=== PATIENT | male | born 1955 | race Caucasian/White ===

== ENCOUNTER 2017-04-18 17:38 | Emergency (ER) | payer BC ==
--- NOTE | 2017-04-18 18:38 | EDPHY ---
H & P Time Seen by Provider: 04/18/17 18:38 HPI/ROS: Chief complaint. Elevated blood pressure HPI. 61-year-old male with history of hypertension was at a routine visit to his psychiatrist today and found to be having an elevated blood pressure of 161/ 114 at the physician's office. Recheck and remained at about that level. Patient however has no symptoms including no headache, visual symptoms, chest discomfort, trouble breathing or abdominal pain. No focal weakness or paresthesias. He was at his PCP's office 2 weeks ago for routine check and his blood pressure at that time was 124/78. His psychiatrist sent him here for further evaluation and blood pressure control ROS Constitutional. no fever/chills, no weakness Eyes. no problems with vision ENT. no sore throat, no nasal drainage Cardiovascular. no chest pain Respiratory. no shortness of breath, no cough Abdominal. no abdominal pain, no nausea/vomiting, no diarrhea . no problems urinating MS. no calf pain/swelling, no neck/back pain, no joint pain Skin. no rash Lymph. no swollen glands Neuro. no headache, no dizziness, no difficulty walking or with speech Past Medical/Surgical History: Hypertension, bipolar illness, dyslipidemia, prostate cancer Social History: , nonsmoker, no alcohol Smoking Status: Never smoked Physical Exam: General Appearance: Alert pleasant well-developed male mild distress vital signs significant for blood pressure 165/104 Eyes: Pupils equal and round no pallor or injection. ENT, Mouth: Mucous membranes are moist. Respiratory: There are no retractions, lungs are clear to auscultation. Cardiovascular: Regular rate and rhythm. Gastrointestinal: Abdomen is soft and nontender, no masses, bowel sounds normal. Neurological: Awake and alert, sensory and motor exams grossly normal. Skin: Warm and dry, no rashes. Musculoskeletal: Neck is supple nontender. Extremities symmetrical, full range of motion. Psychiatric: Patient is oriented X 3, there is no agitation. Constitutional: Initial Vital Signs Temperature (C) 36.8 C 04/18/17 17:40 Heart Rate 70 04/18/17 17:40 Respiratory Rate 18 04/18/17 17:40 Blood Pressure 165/104 H 04/18/17 17:40 O2 Sat (%) 95 04/18/17 17:40 O2 Delivery Mode Room Air Allergies/Adverse Reactions: KULWINDER Inhibitors [Kulwinder Inhibitors] Allergy (Intermediate, Verified 04/18/17 17:40) swelling RAMAPRIL Allergy (Uncoded 02/19/11 14:03) Home Medications: Medication Instructions Recorded ARIPiprazole [Abilify 2 mg (*)] 2 mg PO DAILY 04/18/17 Atorvastatin Calcium [Lipitor 40 40 mg PO 04/18/17 mg (*)] Hydrochlorothiazide [HCTZ (*)] 25 mg PO DAILY 04/18/17 Propranolol HCl [Propranolol HCl 60 mg PO 04/18/17 ER] QUEtiapine FUMARATE [Seroquel 100 100 mg PO DAILY 04/18/17 mg (*)] amLODIPine BESYLATE [Norvasc 5 mg 5 mg PO DAILY 04/18/17 (*)] lamOTRIGine [Lamotrigine] 150 mg PO 04/18/17 Medical Decision Making - Diagnostics EKG Interpretation: EKG interpreted by me shows normal sinus rhythm with first-degree AV. There is left axis deviation possible old inferior. QRS is otherwise normal. There is no significant ST elevation depression. No arrhythmia. Rate is 60 Repeat EKG shows normal sinus rhythm with first-degree AV block. There is still is the appearance of an old inferior MN. His R-wave progression in anterior leads is normal. There is no ST elevation or depression. The rate is 58 Procedures: IV normal saline, monitor Norvasc by mouth ED Course/Re-evaluation: Re-evaluation blood pressure 147/92. Patient is still without symptoms. The patient and I discussed EKG findings as well as laboratory evaluation. We discussed treatment plan including criteria for return importance of follow-up and further evaluation. He expresses understanding and agreement Differential Diagnosis: I considered acute coronary syndrome, urgent and emergent hypertension as well as electrolyte abnormalities - Data Points Laboratory Results: Laboratory Results 04/18/17 19:34 04/18/17 19:34 04/18/17 04/18/17 19:34 19:34 WBC 9.10 10^3/uL 10^3/uL (3.80-9.50) RBC 5.36 10^6/uL 10^6/uL (4.40-6.38) Hgb 18.5 g/dL H g/dL (13.7-17.5) Hct 51.5 % H % (40.0-51.0) MCV 96.1 fL fL (81.5-99.8) MCH 34.5 pg H pg (27.9-34.1) MCHC 35.9 g/dL g/dL (32.4-36.7) RDW 12.6 % % (11.5-15.2) Plt Count 146 10^3/uL L 10^3/uL (150-400) MPV 11.3 fL fL (8.7-11.7) Neut % (Auto) 61.5 % % (39.3-74.2) Lymph % (Auto) 23.2 % % (15.0-45.0) [place] % (Auto) 10.5 % % (4.5-13.0) Eos % (Auto) 3.8 % % (0.6-7.6) Baso % (Auto) 0.8 % % (0.3-1.7) Nucleat RBC Rel Count 0.0 % % (0.0-0.2) Absolute Neuts (auto) 5.59 10^3/uL 10^3/uL (1.70-6.50) Absolute Lymphs (auto) 2.11 10^3/uL 10^3/uL (1.00-3.00) Absolute Monos (auto) 0.96 10^3/uL H 10^3/uL (0.30-0.80) Absolute Eos (auto) 0.35 10^3/uL 10^3/uL (0.03-0.40) Absolute Basos (auto) 0.07 10^3/uL 10^3/uL (0.02-0.10) Absolute Nucleated RBC 0.00 10^3/uL 10^3/uL (0-0.01) Immature Gran % 0.2 % % (0.0-1.1) Immature Gran # 0.02 10^3/uL 10^3/uL (0.00-0.10) Sodium 140 mEq/L mEq/L (134-144) Potassium 5.4 mEq/L H mEq/L (3.5-5.2) Chloride 103 mEq/L mEq/L (97-110) Carbon Dioxide 20 mEq/l L mEq/l (22-31) Anion Gap 17 mEq/L H mEq/L (8-16) BUN 22 mg/dL mg/dL (7-23) Creatinine 0.8 mg/dL mg/dL (0.7-1.3) Estimated GFR > 60 Glucose 89 mg/dL mg/dL (70-100) Calcium 9.4 mg/dL mg/dL (8.5-10.4) Troponin I 0.017 ng/mL ng/mL (0-0.034) Specimen Hemolysis 214 Medications Given: Discontinued Medications Amlodipine Besylate (Norvasc) 10 mg PO EDNOW ONE Stop: 04/18/17 18:58 Last Admin: 04/18/17 19:45 Dose: 10 mg Departure - Departure Disposition: Home, Routine, Self-Care Clinical Impression: Hypertension Qualifiers: Hypertension type: essential hypertension Qualified Code(s): I10 - Essential ( primary) hypertension Condition: Good Instructions: Hypertension (ED) Additional Instructions: Continue regular medications. Keep track of your blood pressure. Return for headache, visual change, chest discomfort or trouble breathing, abdominal pain. Follow up with your regular physician for possible change in blood pressure medication Referrals: CHUCK COMER [Primary Care Provider] - 2-3 days, call for appt.
[2017-04-18] MEDS ORDERED: amLODIPine BESYLATE 5 MG TAB PO ONE (18:57)
[2017-04-18 19:46] LABS: % IMMATURE GRANULYOCYTES 0.2 % (0.0-1.1); ABSOLUTE IMMATURE GRANULOCYTES 0.02 10^3/uL (0.00-0.10); ADD DIFF? NO; ADD MORPH? NO; ADD SCAN? NO; ATYPICAL LYMPHOCYTE FLAG 10 (0-99); FRAGMENT RBC FLAG 0 (0-99); HEMATOCRIT 51.5 % (40.0-51.0); HEMOGLOBIN 18.5 g/dL (13.7-17.5); LEFT SHIFT FLG 0 (0-99); LIPEMIA HEMOLYSIS FLAG 90 (0-99); MEAN CELL HEMOGLOBIN 34.5 pg (27.9-34.1); MEAN CELL HEMOGLOBIN CONCENTR. 35.9 g/dL (32.4-36.7); MEAN CELL VOLUME 96.1 fL (81.5-99.8); MEAN PLATELET VOLUME 11.3 fL (8.7-11.7); PLATELET CLUMPS FLAG 0 (0-99); PLATELET COUNT 146 10^3/uL (150-400); RED BLOOD CELL COUNT 5.36 10^6/uL (4.40-6.38); RED CELL DISTRIBUTION WIDTH 12.6 % (11.5-15.2)
--- NOTE | 2017-04-18 19:54 | CPEKG ---
Heart Rate: 60 RR Interval: 1000 P-R Interval: 256 QRSD Interval: 90 QT Interval: 424 QTC Interval: 424 P [place]: 4 QRS [place]: -57 T Wave [place]: 30 EKG Severity - ABNORMAL ECG - EKG Impression: SINUS RHYTHM EKG Impression: FIRST DEGREE AV BLOCK EKG Impression: PROBABLE INFERIOR INFARCT, AGE INDETERMINATE EKG Impression: CONSIDER ANTERIOR INFARCT Electronically Signed By: Wagner Sheppard 18-Apr-2017 22:56:57
[2017-04-18 20:01] LABS: ANION GAP 17 mEq/L (8-16); CALCIUM 9.4 mg/dL (8.5-10.4); CARBON DIOXIDE 20 mEq/l (22-31); CHLORIDE 103 mEq/L (97-110); CREATININE 0.8 mg/dL (0.7-1.3); GLOMERULAR FILTRATION RATE > 60; GLUCOSE 89 mg/dL (70-100); POTASSIUM 5.4 mEq/L (3.5-5.2); SODIUM 140 mEq/L (134-144)
[2017-04-18 20:13] LABS: TROPONIN I 0.017 ng/mL (0-0.034)
[2017-04-18 20:23] LABS: SPECIMEN HEMOLYSIS 214
[2017-04-18 21:19] VITALS: RESP 16
[2017-04-18 22:03] VITALS: BP 146/97; PULSE 72; TEMP 97.9; O2SAT 95
--- NOTE | 2017-04-19 09:27 | CPEKG ---
Heart Rate: 58 RR Interval: 1034 P-R Interval: 248 QRSD Interval: 86 QT Interval: 436 QTC Interval: 429 P [place]: 17 QRS [place]: -53 T Wave [place]: 41 EKG Severity - ABNORMAL ECG - EKG Impression: SINUS RHYTHM EKG Impression: FIRST DEGREE AV BLOCK EKG Impression: PROBABLE INFERIOR INFARCT, AGE INDETERMINATE EKG Impression: UNCHANGED IN COMPARISON TO PRIOR ECG Electronically Signed By: Mart Mckeon 20-Apr-2017 15:25:09
== END 2017-04-18 22:03 | disposition home or self-care (01) ==
DX: I10 Essential (primary) hypertension (principal); Z85.46 Personal history of malignant neoplasm of prostate

== ENCOUNTER 2018-10-22 19:55 | Observation (INO) | payer BC ==
[2018-10-22] MEDS ORDERED: NS 1,000 ML IV ONE (20:01)
--- NOTE | 2018-10-22 20:01 | EDPHY ---
H & P Time Seen by Provider: 10/22/18 20:00 - Medical/Surgical History Other PMH: bipolar. HTN. prostate cancer - Social History Smoking Status: Never smoked Constitutional: Initial Vital Signs Temperature (C) 36.4 C 10/22/18 20:10 Heart Rate 103 H 10/22/18 20:10 Respiratory Rate 18 10/22/18 20:10 Blood Pressure 130/97 H 10/22/18 20:10 O2 Sat (%) 99 10/22/18 20:10 O2 Delivery Mode Room Air Allergies/Adverse Reactions: ramipril Allergy (Severe, Verified 10/22/18 21:14) Swelling/neck,face,throat KULWINDER Inhibitors [Kulwinder Inhibitors] Allergy (Intermediate, Verified 10/22/18 20:48) swelling Home Medications: Medication Instructions Recorded ARIPiprazole [Abilify 2 mg (*)] 1 mg PO DAILY 04/18/17 Atorvastatin Calcium [Lipitor 40 40 mg PO DAILY 04/18/17 mg (*)] amLODIPine BESYLATE [Norvasc 5 mg 5 mg PO DAILY 04/18/17 (*)] lamOTRIGine [Lamotrigine] 150 mg PO DAILY 04/18/17 Benztropine Mesylate [Cogentin (*)] 1 mg PO HS 10/22/18 Herbals/Supplements -Info Only 1 ea PO DAILY 10/22/18 Propranolol HCl [Inderal 20mg (*)] 20 mg PO QID 10/22/18 Spironolact/Hydrochlorothiazid 0.5 each PO DAILY 10/22/18 [Spironolactone-Hctz 25-25 Tab] levOFLOXACIN [levAQUIN (*)] 500 mg PO DAILY 10/22/18 Medical Decision Making ED Course/Re-evaluation: CHIEF COMPLAINT: Rectal bleeding s/p prostate biopsy HISTORY OF PRESENT ILLNESS: The patient is a 63 y/o male with a history of prostate cancer complaining of rectal bleeding s/p a prostate biopsy today. The prostate biopsy was at 12:30pm today, 7 hours ago. He has had persistent rectal bleeding since the surgery. Since returning home, he has felt dizzy and lightheaded. He is able to have a bowel movement, but there is bright red blood present. Due to the rectal bleeding, he was advised to present to the emergency department by his urologist. No fever, headache, chest pain, abdominal pain, numbness, paresthesias. REVIEW OF SYSTEMS: A comprehensive 10 system review of systems is otherwise negative aside from elements mentioned in the history of present illness and medical decision making. PHYSICAL EXAM: HR, BP, O2 Sat, RR. Temp noted General Appearance: Pale, diaphoretic, alert, appropriate. Head: Atraumatic without scalp tenderness or obvious injury Eyes: Pupils equal, round, reactive to light and accommodation, EOMI, no trauma , no injection. Ears: Clear bilaterally, no perforation, normal landmarks Nose: Atraumatic, no rhinorrhea, clear. Throat: There is no erythema or exudates, no lesions, normal tonsils, mucus membranes moist. Neck: Supple, 2+ carotid upstroke, nontender, no lymphadenopathy. Respiratory: No retractions, no distress, no wheezes, and no accessory muscle use. Lungs are clear to auscultation bilaterally. Cardiovascular: Tachycardic, no murmurs, rubs, or gallops. Bilateral carotid, radial, dorsalis pedis, and posterior tibial pulses intact. Good capillary refill all extremities. Gastrointestinal: Abdomen is soft, nontender, non-distended, no masses, no rebound, no guarding, no peritoneal signs. Rectal: Bright red blood present. Musculoskeletal: Normal active ROM of all extremities, atraumatic. Neurological: Alert, appropriate, and interactive. The patient has normal DTRs and non-focal cranial nerves, motor, sensory, and cerebellar exam. Skin: No rashes, good turgor, no nodules on palpation. Past medical history: Bipolar, hypertension, prostate cancer Past surgical history: Prostate biopsy Family history: Denies Social history: at bedside, lives in [place], employed DIAGNOSTICS/PROCEDURES/CRITICAL CARE TIME: Critical care time spent by me, Dr. Jose, exclusively with this patient was 90 minutes, exclusive of PA time and exclusive of procedures. The organ system at risk was Z and I gave IVF and transferred the patient to the floor to prevent worsening of the patients condition. DIFFERENTIAL DIAGNOSIS: The differential diagnosis for the patient's lower GI bleeding included but was not limited to mucosal bleeding s/p prostate biopsy, diverticulosis, tumor, AVM , hemorrhoid, and upper GI Bleed. MEDICAL DECISION MAKING: The patient is a 63 y/o male with a history of prostate cancer presenting with rectal bleeding s/p a prostate biopsy today. He is still actively bleeding from his rectum and I presume a mucosal artery or vein was hit during the procedure today. 2 IV lines established and 1L IV NS administered, type and cross as well as additional labs ordered. 2022: I consulted with Dr. Gonsalez, general surgeon, regarding this patient. He agrees to consult on this patient. 2049: I consulted with the hospitalist service, Dr. Perez accepts admission of this patient. 2057: I consulted with Dr. Hebert, urologist, regarding this patient. He agrees to consult on this patient during his admission. 2141: Reassessed patient and discussed plan for admission. Dr. Gonsalez is also in the room now to consult on this patient. - Data Points Laboratory Results: Laboratory Results 10/22/18 20:10 10/22/18 20:10 10/22/18 10/22/18 10/22/18 20:14 20:10 20:10 WBC RBC Hgb POC Hgb 16.7 gm/dL gm/dL (13.7-17.5) Hct POC Hct 49 % % (40-51) MCV MCH MCHC RDW Plt Count MPV Neut % (Auto) Lymph % (Auto) [place] % (Auto) Eos % (Auto) Baso % (Auto) Nucleat RBC Rel Count Absolute Neuts (auto) Absolute Lymphs (auto) Absolute Monos (auto) Absolute Eos (auto) Absolute Basos (auto) Absolute Nucleated RBC Immature Gran % Immature Gran # PT INR APTT POC Sodium 137 mEq/L mEq/L (135-145) Sodium 134 mEq/L L mEq/L (135-145) POC Potassium 4.0 mEq/L mEq/L (3.3-5.0) Potassium 4.2 mEq/L mEq/L (3.5-5.2) POC Chloride 98 mEq/L mEq/L (97-110) Chloride 100 mEq/L mEq/L (97-110) Carbon Dioxide 19 mEq/l L mEq/l (22-31) POC Total CO2 20 mEq/L L mEq/L (22-31) Anion Gap 15 mEq/L H mEq/L (6-14) POC BUN 26 mg/dL H mg/dL (7-23) BUN 27 mg/dL H mg/dL (7-23) Creatinine 1.0 mg/dL mg/dL (0.7-1.3) POC Creatinine 1.1 mg/dL mg/dL (0.7-1.3) Estimated GFR > 60 Glucose 237 mg/dL H mg/dL (70-100) POC Glucose 241 mg/dL H mg/dL (70-100) Calcium 9.2 mg/dL mg/dL (8.5-10.4) Patient ABO/Rh A POSITIVE Antibody Screen NEGATIVE Crossmatch IS Only See Detail 10/22/18 10/22/18 20:10 20:10 WBC 14.09 10^3/uL H 10^3/uL (3.80-9.50) RBC 4.74 10^6/uL 10^6/uL (4.40-6.38) Hgb 16.3 g/dL g/dL (13.7-17.5) POC Hgb Hct 47.6 % % (40.0-51.0) POC Hct MCV 100.4 fL H fL (81.5-99.8) MCH 34.4 pg H pg (27.9-34.1) MCHC 34.2 g/dL g/dL (32.4-36.7) RDW 11.8 % % (11.5-15.2) Plt Count 230 10^3/uL 10^3/uL (150-400) MPV 11.6 fL fL (8.7-11.7) Neut % (Auto) 84.4 % H % (39.3-74.2) Lymph % (Auto) 9.8 % L % (15.0-45.0) [place] % (Auto) 5.3 % % (4.5-13.0) Eos % (Auto) 0.0 % L % (0.6-7.6) Baso % (Auto) 0.2 % L % (0.3-1.7) Nucleat RBC Rel Count 0.0 % % (0.0-0.2) Absolute Neuts (auto) 11.90 10^3/uL H 10^3/uL (1.70-6.50) Absolute Lymphs (auto) 1.38 10^3/uL 10^3/uL (1.00-3.00) Absolute Monos (auto) 0.74 10^3/uL 10^3/uL (0.30-0.80) Absolute Eos (auto) 0.00 10^3/uL L 10^3/uL (0.03-0.40) Absolute Basos (auto) 0.03 10^3/uL 10^3/uL (0.02-0.10) Absolute Nucleated RBC 0.00 10^3/uL 10^3/uL (0-0.01) Immature Gran % 0.3 % % (0.0-1.1) Immature Gran # 0.04 10^3/uL 10^3/uL (0.00-0.10) PT 14.0 SEC SEC (12.0-15.0) INR 1.06 (0.83-1.16) APTT 21.3 SEC L SEC (23.0-38.0) POC Sodium Sodium POC Potassium Potassium POC Chloride Chloride Carbon Dioxide POC Total CO2 Anion Gap POC BUN BUN Creatinine POC Creatinine Estimated GFR Glucose POC Glucose Calcium Patient ABO/Rh Antibody Screen Crossmatch IS Only Medications Given: Discontinued Medications Sodium Chloride (Ns) 1,000 mls @ 0 mls/hr IV EDNOW ONE; Wide Open PRN Reason: Protocol Stop: 10/22/18 20:02 Last Admin: 10/22/18 20:19 Dose: 1,000 mls Point of Care Test Results: Chemistry 10/22/18 20:14 POC Sodium 137 mEq/L mEq/L (135-145) POC Potassium 4.0 mEq/L mEq/L (3.3-5.0) POC Chloride 98 mEq/L mEq/L (97-110) POC Total CO2 20 mEq/L L mEq/L (22-31) POC BUN 26 mg/dL H mg/dL (7-23) POC Creatinine 1.1 mg/dL mg/dL (0.7-1.3) POC Glucose 241 mg/dL H mg/dL (70-100) ISTAT H&H 10/22/18 20:14 POC Hgb 16.7 gm/dL gm/dL (13.7-17.5) POC Hct 49 % % (40-51) Departure - Departure Disposition: [facility] Inpatient Acute Clinical Impression: Rectal bleeding, History of prostate biopsy Condition: Fair Report Scribed for: Zurdo Jose Report Scribed by: Shruthi Guo Date of Report: 10/22/18 Time of Report: 20:04
[2018-10-22 20:26] LABS: PLATELET COUNT 230 10^3/uL (150-400)
[2018-10-22 20:29] LABS: INR 1.06 (0.83-1.16)
[2018-10-22] MEDS ORDERED: ACETAMINOPHEN 325 MG TAB PO PRN (21:08)
[2018-10-22] MEDS ORDERED: HYDROmorphONE/DILAUDID 1 MG/ML INJ IVP PRN (21:08)
[2018-10-22] MEDS ORDERED: NS 1,000 ML IV SCH (21:15)
[2018-10-22] MEDS ORDERED: BENZTROPINE MESYLATE 2 MG TAB PO SCH (22:15)
[2018-10-22] MEDS ORDERED: BENZTROPINE MESYLATE 1 MG TAB PO SCH (22:30)
[2018-10-22] MEDS: PROPRANOLOL HCL 20 MG TAB PO SCH (23:00)
--- NOTE | 2018-10-22 23:54 | GHP ---
[f rep st] HISTORY AND PHYSICAL DATE OF ADMISSION: 10/22/2018 CHIEF COMPLAINT: Blood per rectum. HISTORY OF PRESENT ILLNESS: Patient is a pleasant 63-year-old gentleman with a past medical history of hypertension and bipolar disorder, who had a notable elevated PSA recently and subsequently underw ent an MRI of his prostate and subsequent biopsy today. After returning home he had persistent bleed ing per rectum and, after consulting with his on-call urologist, presented to the emergency room for assessment. Upon arrival to the emergency room his hemoglobin was 16. The case was reviewed with [facility] Urology and General Surgery in the emergency room, and it was ultimately decided to admit him for observation and serial hemoglobins. PAST MEDICAL HISTORY: Hypertension; suspected asthma; obstructive sleep apnea, on CPAP; bipolar diso rder. PAST SURGICAL HISTORY: History of laparotomy for perforated gastric ulcer. MEDICATIONS: Amlodipine 5 mg daily; Abilify 1 mg daily; Atorvastatin 40 mg daily; benztropine 1 mg n ightly; lamotrigine 150 mg daily; Levaquin 500 mg daily; Inderal 20 mg 4 times a day; spironolactone/ hydrochlorothiazide half tablet daily. ALLERGIES: ROCK inhibitors. FAMILY HISTORY: Mother and father are both living. Father has a history of coronary artery disease and mother with history of hypertension and diabetes mellitus type 2. SOCIAL HISTORY: Patient is currently . He has no children. He is not a smoker. REVIEW OF SYSTEMS: CONSTITUTIONAL: No complaints of any fevers or chills. ENT: No recent upper re spiratory illnesses. CARDIOVASCULAR: No complaints of chest pain, palpitations, or syncopal episode s. He does though acknowledge some lightheadedness with the bleeding today. RESPIRATORY: No compla ints of shortness of breath or productive cough. GI: Positive for hematochezia. No nausea or vomit ing or focal abdominal pain. : No reports of any difficulty with urination. NEUROLOGIC: No comp laints of any headaches or focal weakness. HEMATOLOGIC: No history of any deep vein thrombosis or p ulmonary embolism. PSYCHIATRIC: No history of anxiety or depression but positive for bipolar disord er. ENDOCRINE: No history of polyuria or heat intolerance. SKIN: No new skin rashes. MUSCULOSKEL ETAL: No focal joint pains. PHYSICAL EXAM: VITAL SIGNS: Temperature 36.4, blood pressure 130/97, heart rate of 103, respiration s 18, sating 99% on room air. GENERAL: Patient appeared comfortable. He did not appear pale. He w as awake, alert, conversant, able to provide a good history. HEENT: Extraocular movements were inta ct. No scleral icterus. NECK: Supple. No thyroid enlargement appreciated. CHEST: Clear on auscu ltation with normal respiratory effort. HEART: Regular rate and rhythm. No murmurs. ABDOMEN: Sof t, nontender, nondistended. : No Fried catheter in place. EXTREMITIES: No significant edema. N EUROLOGIC: Cranial nerves 2-12 appear grossly intact with 5/5 strength in all extremities. LABS: White blood cell count 14, hemoglobin 16, platelets 230, sodium 137, potassium 4.0, chloride 9 8, bicarb 20, BUN 26, creatinine 1.1, glucose of 241. ASSESSMENT/PLAN: 1. Hematochezia: At this point in time there is no indication for transfusion of blood products. I recommend a repeat at midnight tonight and then with morning labs. Both Urology and General Surgery have been consulted in case of lack of cessation of the bleeding and need for surgical intervention. 2. Elevated glucose: I have ordered a hemoglobin A1c to assess for the possibility of diabetes or i mpaired fasting glucose. 3. Prostate biopsy, pending results: We will continue with current outpatient Levaquin as prescribe d. 4. Hypertension: We will hold outpatient amlodipine for now pending close monitoring. 5. Obstructive sleep apnea: Patient is on CPAP therapy as an outpatient. 6. Hyperlipidemia: I think we can hold atorvastatin for now. 7. Bipolar disorder: Continue current Lamictal and Abilify. 8. Deep vein thrombosis prophylaxis: No heparin or Lovenox in light of bleeding. Compression devic es ordered. DISPOSITION: I recommend admission under observation status. /[id number]/MODL
[2018-10-23] MEDS: PROPRANOLOL HCL 20 MG TAB PO SCH (06:32)
[2018-10-23] MEDS ORDERED: ARIPiprazole 2 MG TAB PO SCH (09:00)
[2018-10-23] MEDS ORDERED: lamoTRIgine 100 MG TAB PO SCH (09:00)
--- NOTE | 2018-10-23 09:47 | ASMTCMCOM ---
CM Note CM Note Notes: Patient chart reviewed. 63 year old admitted via ED after having continued rectal bleeding s/p prostate biopsy. CM to follow for needs. Plan: Likely independent when medically stable for discharge. Date Signed: 10/23/2018 09:47 AM Electronically Signed By:Blessing Yo RN
[2018-10-23 11:33] VITALS: BP 120/67
[2018-10-23 11:56] LABS: PLATELET COUNT 163 10^3/uL (150-400)
--- NOTE | 2018-10-23 12:39 | SOAPPROG ---
SOAP Progress Note Assessment/Plan: Assessment: Post-prostate biopsy rectal bleeding - appears stable. Some decrease in Hct this afternoon that I presume is primarily dilutional since he's not having any rectal bleeding currently. Plan: 1. May be discharged from my standpoint, if okay w/ hospitalist service. 2. Bedrest at home for 2 days. 3. Complete short Levaquin course administered around yesterday's biopsy. Has 2 doses remaining (today & tomorrow). 4. Colace for 1 week. 5. Assuming he is discharged today, my office will call to check on him tomorrow. Otherwise, he will FU in my office as scheduled in about 2 weeks. Subjective: Post-prostate biopsy history noted & reviewed w/ pt. He feels significantly better today. Objective: Vital Signs Temp Pulse Resp BP Pulse Ox 37.1 C 73 18 120/67 97 10/23/18 11:32 10/23/18 11:32 10/23/18 11:32 10/23/18 11:32 10/23/18 11:32 Laboratory Results 10/23/18 11:47 10/22/18 10/23/18 10/24/18 05:59 05:59 05:59 Intake Total 539 Output Total 200 100 Balance -200 439 PT 14.0 SEC (12.0-15.0) 10/22/18 20:10 INR 1.06 (0.83-1.16) 10/22/18 20:10 Physical Exam - Physical Exam General Appearance: WD/WN, alert, no apparent distress Skin: normal color, warm/dry Extremities: normal range of motion, non-tender Neuro/Psych: alert, normal mood/affect ICD10 Worksheet Patient Problems: Problems Problem Status Onset History of prostate biopsy Acute Rectal bleeding Acute
[2018-10-23] MEDS ORDERED: DOCUSATE SODIUM 100 MG CAP PO SCH (12:45)
--- NOTE | 2018-10-23 13:13 | ASMTLACE ---
LACE Length of stay for Answers: Less than 1 day current admission Comorbidities - select Answers: Any tumor (including all that apply lymphoma or leukemia) Other Notes: HTN # of Emergency department Answers: 1-2 visits in the last 6 months Social determinants Answers: Mental health diagnosis (anxiety, depression, pers onality disorders, etc.) Score: 7 Date Signed: 10/23/2018 01:13 PM Electronically Signed By:Blessing Yo RN
--- NOTE | 2018-10-23 13:15 | ASMTDCNOTE ---
Case Management Discharge Discharge Order Complete? Answers: Yes Patient to Obtain Answers: Independently Medications Transportation Arranged Answers: Family/Friends Family Notified Answers: Yes Discharge Comments Notes: Medically cleared for dc. No identiifed needs. CM available if needs arise. Date Signed: 10/23/2018 01:14 PM Electronically Signed By:Blessing Yo RN
--- NOTE | 2018-10-23 17:02 | GDS ---
[f rep st] DISCHARGE SUMMARY DISCHARGE DIAGNOSES: 1. Hematochezia secondary to prostate biopsy, resolved. 2. Hyperglycemia, likely stress response, with a normal A1c of 5.3. 3. Status post prostate biopsy. 4. Hypertension. 5. Obstructive sleep apnea. 6. Hyperlipidemia. 7. Bipolar. CONSULTANTS: None. HISTORY: For details, please see history and physical dated October 22, 2018. The patient is a 63- year-old male with a history of hypertension and bipolar disorder who presented to the emergency depa rtment after he suffered a significant episode of rectal bleeding shortly after undergoing a prostate biopsy. He was admitted to the hospital for further management. HOSPITAL COURSE: The patient was admitted to the med/surg unit. His presenting hemoglobin was 16. Followup hemoglobins remained stable around 13. He was hemodynamically stable. His rectal bleeding completely resolved. Both Urology and General Surgery were consulted in the emergency department, an d there was no indication for surgical intervention. On the day of discharge, he has had no further bleeding. His pain is controlled. His hemoglobin remained stable. He will complete his course of o ral Levaquin as prescribed by his urologist and will follow up with Dr. Fish. DISPOSITION: Patient is discharged home in stable condition. He was instructed for relative bed res t as well as Colace for stool softener. DISCHARGE MEDICATIONS: Please see [facility] for complete completed updated outpatient medication list . There are no new medications on discharge. FOLLOWUP: 1. Dr. Ziggy Fish MD, Urology. 2. Dr. Jack Garcia, Primary Care. /[id number]/MODL
== END 2018-10-23 13:27 | disposition home or self-care (01) ==
LOC: F1N 22:12
PROVIDERS: ADMIT Internal Medicine; ATTEND Internal Medicine
DX: K92.1 Melena (principal); R73.9 Hyperglycemia, unspecified; I10 Essential (primary) hypertension; F31.9 Bipolar disorder, unspecified; E78.5 Hyperlipidemia, unspecified; C61 Malignant neoplasm of prostate
CPT/HCPCS: 96360; 99291; 99292; G0378; 82435-PO; 82565-PO; 82947-PO; 84132-PO; 84295-PO; 84520-PO; 85014-ER

== ENCOUNTER 2018-12-13 09:54 | Inpatient (IN) | payer BC ==
--- NOTE | 2018-12-13 10:24 | PDHPUP ---
History & Physical Update H&P update statement: This history and physical update is based on an assessment of the patient which was completed after admission or registration (within 24 hours), but prior to the surgery/procedure. H&P update: no change in patient's condition since H&P completed
[2018-12-13] MEDS ORDERED: cefOXitin SODIUM 2 GM in NS 100 ML IV ONE (10:49)
[2018-12-13] MEDS ORDERED: LIDOCAINE 1% 2 ML INJ ID PRN (10:59)
[2018-12-13] MEDS ORDERED: LR 1,000 ML IV ONE (10:59)
--- NOTE | 2018-12-13 13:43 | POSTOPPROG ---
Post Op Note Date of Operation: 12/13/18 Surgeon: Ziggy Fish (# ) Planer Operator / Grader: Elvira Mcdaniel Anesthesia: GET(General Endotracheal) Pre-op Diagnosis: Prostate CA Post-op Diagnosis: Prostate CA Findings: See op note Bowel Protocol: N/A Clean Closure Performed: N/A
[2018-12-13] MEDS ORDERED: MIDAZOLAM 2 MG/2 ML VIAL IVP ONE (13:45)
--- NOTE | 2018-12-13 13:45 | PDANEPAE ---
ANE History of Present Illness prostate CA and here for robotic prostatectomy ANE Past Medical History - Cardiovascular History Hx Hypertension: Yes Hx Arrhythmias: No Hx Chest Pain: No Hx Coronary Artery / Peripheral Vascular Disease: No Hx CHF / Valvular Disease: No Hx Palpitations: No - Pulmonary History Hx COPD: No Hx Asthma/Reactive Airway Disease: No Hx Recent Upper Respiratory Infection: No Hx Oxygen in Use at Home: No Hx Sleep Apnea: Yes Sleep Apnea Screening Result - Last Documented: Positive Pulmonary History Comment: JESSICA uses CPAP - Neurologic History Hx Cerebrovascular Accident: No Hx Seizures: No Hx Dementia: No - Endocrine History Hx Diabetes: No - Renal History Hx Renal Disorders: No - Liver History Hx Hepatic Disorders: No - Neurological & Psychiatric Hx Hx Neurological and Psychiatric Disorders: Yes 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 Bipolar - Cancer History Hx Cancer: No Cancer History Comment: new dx prostate - Congenital Disorder History Hx Congenital Disorders: No - GI History Hx Gastrointestinal Disorders: No - Other Health History Other Health History: none - Chronic Pain History Chronic Pain: No - Surgical History Prior Surgeries: 2019 MRI for biopsy. colonoscopy ANE Review of Systems Review of Systems: - Exercise capacity METS (RN): 4 METS ANE Patient History - Allergies Allergies/Adverse Reactions: ramipril Allergy (Severe, Verified 11/28/18 16:14) Swelling/neck,face,throat KULWINDER Inhibitors [Kulwinder Inhibitors] Allergy (Intermediate, Verified 11/28/18 16:14) swelling - Home Medications Home Medications: ARIPiprazole [Abilify 2 mg (*)] 1 mg PO DAILY 04/18/17 [Last Taken 12/13/18 06: 00] Atorvastatin Calcium [Lipitor 40 mg (*)] 40 mg PO DAILY 04/18/17 [Last Taken 12/28 06:00] amLODIPine BESYLATE [Norvasc 5 mg (*)] 5 mg PO DAILY 04/18/17 [Last Taken 06:00] lamOTRIGine [Lamotrigine] 150 mg PO DAILY 04/18/17 [Last Taken 12/13/18 06:00] Benztropine Mesylate [Cogentin (*)] 1 mg PO HS 10/22/18 [Last Taken 12/12/18] Herbals/Supplements -Info Only 1 ea PO DAILY 10/22/18 [Last Taken 12/06/18] Propranolol HCl [Inderal 20mg (*)] 20 mg PO QID 10/22/18 [Last Taken 12/13/18 06 :00] Spironolact/Hydrochlorothiazid [Spironolactone-Hctz 25-25 Tab] 0.5 each PO DAILY 10/22/18 [Last Taken 12/12/18 06:00] Ambien 5MG (*) 12/13/18 [Last Taken 12/11/18 21:00] - NPO status NPO Since - Liquids (Date): 12/13/18 NPO Since - Liquids (Time): 06:45 NPO Since - Solids (Date): 12/12/18 NPO Since - Solids (Time): 12:00 - Smoking Hx Smoking Status: Never smoked - Family Anes Hx Family Hx Anesthesia Complications: none ANE Labs/Vital Signs - Vital Signs Blood Pressure: 135/94 Heart Rate: 65 Respiratory Rate: 16 O2 Sat (%): 95 Height: 177.8 cm Weight: 81.647 kg ANE Physical Exam - Airway Neck exam: FROM Mallampati Score: Class 3 Mouth exam: normal dental/mouth exam - Pulmonary Pulmonary: no respiratory distress, no rales or rhonchi - Cardiovascular Cardiovascular: regular rate and rhythym, no murmur, rub, or gallop - ASA Status ASA Status: III ANE Anesthesia Plan Anesthesia Plan: general endotracheal anesthesia Regional Anesthesia: single shot NB Total IV Anesthesia: No
[2018-12-13] MEDS ORDERED: ROCURONIUM 100 MG/10 ML VIAL ONE (14:15)
[2018-12-13] MEDS ORDERED: fentaNYL 250 MCG/5 ML INJ ONE (14:15)
[2018-12-13] MEDS ORDERED: ONDANSETRON 4 MG/2 ML VIAL ONE (14:15)
[2018-12-13] MEDS ORDERED: PHENYLEPHRINE 10 MG/ML SDV ONE (14:15)
[2018-12-13] MEDS ORDERED: DEXAMETHASONE 4 MG/ML VIAL ONE (14:15)
[2018-12-13] MEDS ORDERED: PROPOFOL 200 MG/20 ML VIAL ONE ×2 (14:15→15:18)
[2018-12-13] MEDS ORDERED: LIDOCAINE 2% 100 MG/5 ML SYR ONE (14:15)
[2018-12-13] MEDS: BUPIVACAINE 0.5% 30 ML SDV ONE ×2 (15:54→18:57)
[2018-12-13] MEDS ORDERED: THROMBIN(HUM PLAS)/FIBRINOG/CA 5 ML VIAL TP ONE ×2 (15:58→17:44)
[2018-12-13] MEDS ORDERED: BACITRACIN 50,000 UNITS/10 ML SYR IRR ONE (16:03)
--- NOTE | 2018-12-13 17:01 | PDMN ---
Medical Necessity Medical necessity: [facility] [id number], Radical, 1 day: 63 yo s/p radical prostatectomy, CPT 91590/88128 MC IP only, pt w/ hx bipolar d/o, HTN, +JESSICA. Pt ASA status III. Pre-authed for INPT status.
[2018-12-13] MEDS ORDERED: MEPERIDINE 25 MG/0.5 ML AMP IVP PRN (18:17)
[2018-12-13] MEDS ORDERED: NALOXONE HCL 0.4 MG/ML INJ IVP PRN ×2 (18:17→18:44)
[2018-12-13] MEDS ORDERED: LR 500 ML IV PRN (18:17)
[2018-12-13] MEDS ORDERED: fentaNYL 100 MCG/2 ML INJ IVP PRN (18:17)
--- NOTE | 2018-12-13 18:17 | POSTANESTH ---
Post Anesthetic Evaluation Cardiovascular Status: Normal, Stable Respiratory Status: Normal, Stable Level of Consciousness/Mental Status: Can Participate in Eval Pain Control: Adequate, Prn Tx Ordered Nausea/Vomiting Control: Adequate, Prn Tx Ordered Complications Possibly Related to Anesthesia: None Noted
[2018-12-13] MEDS ORDERED: BUPIVACAINE 0.5% 30 ML SDV ONE (18:22)
[2018-12-13] MEDS ORDERED: BUPIVACAINE/EPI 0.25% 30 ML SDV ONE (18:22)
[2018-12-13] MEDS ORDERED: GLYCOPYRROLATE 0.2 MG/1 ML VIAL ONE ×2 (18:25)
[2018-12-13] MEDS ORDERED: NEOSTIGMINE METHYLSULFATE 5 MG/5 ML SYR ONE (18:25)
[2018-12-13] MEDS ORDERED: HYDROmorphONE/DILAUDID 6 MG/30 ML PCA IV PRN (18:44)
[2018-12-13] MEDS ORDERED: LIDOCAINE 2% JELLY 5 ML TUBE TP PRN (18:45)
[2018-12-13] MEDS ORDERED: ONDANSETRON 4 MG/2 ML VIAL IVP PRN (18:45)
[2018-12-13] MEDS ORDERED: D5W 1/2 NS 1,000 ML IV SCH (18:45)
[2018-12-13] MEDS ORDERED: PROMETHAZINE HCL 25 MG/ML INJ IVP PRN (18:45)
[2018-12-13] MEDS ORDERED: BENZTROPINE MESYLATE 1 MG TAB PO SCH (21:00)
[2018-12-13] MEDS: cefOXitin SODIUM 2 GM in NS 100 ML IV SCH (21:52)
[2018-12-14] MEDS: cefOXitin SODIUM 2 GM in NS 100 ML IV SCH ×3 (03:51→15:36)
[2018-12-14] MEDS ORDERED: SPIRONOLACTONE 25 MG TAB PO SCH (09:00)
[2018-12-14] MEDS ORDERED: lamoTRIgine 100 MG TAB PO SCH (09:00)
[2018-12-14] MEDS ORDERED: amLODIPine BESYLATE 5 MG TAB PO SCH (09:00)
[2018-12-14] MEDS ORDERED: HYDROCHLOROTHIAZIDE 25 MG TAB PO SCH (09:00)
[2018-12-14] MEDS ORDERED: ARIPiprazole 2 MG TAB PO SCH (09:00)
--- NOTE | 2018-12-14 09:08 | SOAPPROG ---
SOAP Progress Note Assessment/Plan: Assessment: POD 1 s/p robotic radical prostatectomy + bilateral PLND. Doing well. Plan: 1. Continue postop care, including ambulation, advancing of diet. 2. Toradol Subjective: Some pain overnight that was controlled w/ PRISM INSPECTOR. Tolerating ice chips & sips. No N/V. Objective: Vital Signs Temp Pulse Resp BP Pulse Ox 37.1 C 69 16 128/84 H 96 12/14/18 08:23 12/14/18 08:23 12/14/18 08:23 12/14/18 08:23 12/14/18 08:23 Laboratory Results 12/14/18 04:32 12/14/18 04:32 12/13/18 12/14/18 12/15/18 05:59 05:59 05:59 Intake Total 1575 1500 Output Total 460 930 Balance 1115 570 Physical Exam - Physical Exam General Appearance: WD/WN, alert, no apparent distress Abdomen: soft, distended (mildly; incisions c/d/i; mild tenderness in lower midline) Male Genitalia: other (urine clearing via Fried) Skin: normal color, warm/dry Extremities: non-tender, normal inspection Neuro/Psych: alert, normal mood/affect ICD10 Worksheet Patient Problems: Problems Problem Status Onset History of prostate biopsy Acute Rectal bleeding Acute
[2018-12-14] MEDS ORDERED: KETOROLAC 30 MG/1 ML SDV IVP ONE (09:20)
[2018-12-14] MEDS ORDERED: HYDROCODONE/APAP 5/325 TAB PO PRN (13:48)
[2018-12-14] MEDS ORDERED: HYDROmorphONE/DILAUDID 1 MG/ML INJ IVP PRN (13:49)
--- NOTE | 2018-12-14 13:51 | ASMTCMCOM ---
CM Note CM Note Notes: Pt is a 63 yo M who underwent prostatectomy with Dr. Fish. CM spoke with RN, Pt is advancing diet. No therapies are ordered at this time. Pt will likely be discharged independently. CM available if needs arise. Plan: Independent once medically stable. Date Signed: 12/14/2018 01:50 PM Electronically Signed By:ALLIE Pereyra
[2018-12-14] MEDS ORDERED: PROPRANOLOL HCL 20 MG TAB PO SCH (16:00)
[2018-12-14] MEDS ORDERED: KETOROLAC 15 MG/1 ML SDV IVP SCH (16:00)
[2018-12-14 16:08] VITALS: BP 119/74
--- NOTE | 2018-12-14 19:00 | GDS ---
[f rep st] DISCHARGE SUMMARY ADMISSION DIAGNOSIS: Prostate adenocarcinoma. DISCHARGE DIAGNOSIS: Prostate adenocarcinoma. PROCEDURE: Robotically-assisted laparoscopic radical prostatectomy and bilateral pelvic lymphadenect jason on 12/13/2018. HOSPITAL COURSE: Refer to the operative report for details regarding the procedure. Postoperatively, the patient did well. He was tolerating a regular diet, ambulating, vital signs wer e stable, and he was afebrile during the postoperative hospitalization. His physical exam was unrema rkable. Urine was gradually clearing in color via the Fried catheter. Postoperative laboratory work was stable. Patient was deemed ready for discharge on the evening of postoperative day 1. He is be ing discharged on his regular medications, as well as [place] p.r.n. pain. He will also begin Cipro 50 0 mg b.i.d. on the date indicated on the prescription. Activity restriction instructions and Fried c atheter care information have been provided. He will return to the office in approximately 10 days f or Fried catheter removal. Pathology results are pending at the time of discharge. Copy requested to: Primary Care Provider /[id number]/MODL
--- NOTE | 2018-12-16 17:05 | GOP ---
[f rep st] OPERATIVE REPORT DATE OF OPERATION: 12/13/2018 SURGEON: Ziggy Fish MD FIELD RADIO OPERATOR: Orin Mcdaniel CFA ANESTHESIA: General endotracheal. PREOPERATIVE DIAGNOSIS: Prostate adenocarcinoma. POSTOPERATIVE DIAGNOSIS: Prostate adenocarcinoma. PROCEDURE PERFORMED: Robotically-assisted laparoscopic radical prostatectomy and bilateral pelvic lymphadenectomy. FINDINGS: No obvious gross extraprostatic extent of cancer. SPECIMENS: 1. Right and left pelvic lymph node packages. 2. Prostate with seminal vesicles. ESTIMATED BLOOD LOSS: Approximately 150 cc. INDICATIONS: This gentleman has been on active surveillance for prostate cancer. Because of both volume and grade progression, it was recommended that he undergo definitive therapy. He has decided to proceed with radical prostatectomy. The indications for the procedures as well as potential risks and complications were discussed with the patient preoperatively. He appeared to understand, his questions were answered, and he wished to proceed. Written informed surgical consent was thereafter obtained. DESCRIPTION OF PROCEDURE: The patient was brought to the operating room and administered general endotracheal anesthesia. He was carefully placed in the supine position on the operating room table. The abdomen and genital areas were sterilely prepped and draped in standard fashion utilizing Ioban. An 18- Lao Fried catheter was placed to bag drainage sterilely on the field. I initially attempted to obtain intra-abdominal access in the midline, approximately 3 cm above umbilicus, with a Veress needle. I then insufflated the abdomen to a total of 15 mmHg pressure, which was the pressure maintained throughout the majority of the case. An 8 mm robotic port was placed in this location. I then attempted to visualize the intra-abdominal cavity using the 0- degree robotic camera. However, there appeared to be either some adhesions or I was in the preperitoneal space upon attempted initial trocar placement into the abdomen. I was able to carefully change the position of the port and scope slightly so that I was able to identify the intra-abdominal contents. There appeared to be possibly some adhesions in the region of the periumbilical anterior abdominal wall. I decided to place my remaining ports, which were as follows: An 8 mm robotic port placed approximately 8 cm lateral to the umbilicus on the left side, a 12 mm legal administrative assistant port placed approximately 8 cm lateral to the left-sided robotic port, an 8 mm robotic port placed 8 cm lateral to the umbilicus on the right side, and lastly, 1 additional 8 mm robotic port placed approximately 8 cm lateral to the one placed on the right side. All these ports were placed under direct vision without complication. I then utilized these additional ports to more thoroughly visualize the abdominal cavity, and more specifically the intra-abdominal adhesions. There appeared to be some adhesions at the level of the umbilicus that included some intra- abdominal fat as well as 1 isolated loop of bowel. I felt that it would be necessary to release these adhesions before being able to safely proceed with prostatectomy. Therefore, laparoscopic cold ary were used to carefully dissect these adhesions off the anterior abdominal wall and allow them to fall into the abdominal cavity. This was performed without complication. No other significant adhesions that would impact the operation were otherwise visualized. Therefore, the patient was placed in an approximately 27-degree Trendelenburg position. It should also be mentioned that before the patient was prepped and draped, he was secured to the table with the bed strap as well as several strips of wide tape from head to toe. Once the patient was in the 27 -degree Trendelenburg position, the da Mitch XI robot was then docked appropriately and all ports attached to the respective robotic arms. The 0- degree camera was used throughout the remainder of the case. I then left the patient's bedside and entered the surgeon's robotic console. I began the prostatectomy portion of the procedure by initially identifying the seminal vesicles and vas deferens in a posterior position by incising the posterior peritoneum transversely in the midline approximately 2 cm above the rectum. A gentle spreading motion was then used to dissect the fat in this location in order to identify the seminal vesicles and vas deferens bilaterally. I was able to dissect these structures from the surrounding tissue with judicious use of electrocautery and Hem-o-oliver clips to ligate the tips to the seminal vesicles. The vas deferens were ligated a few centimeters proximal to their insertion at the base of the prostate with bipolar cautery and divided with scissors. Once the seminal vesicles and vas deferens were free , I made an incision through Denonvilliers fascia transversely just below the base of the seminal vesicles in the midline and extended this incision laterally on each side in order to allow for dissection of the posterior prostate from the rectum. A gentle spreading motion was used to accomplish this as far towards the prostatic apex as possible. This plane was fairly adhesed, and so, I performed only a limited amount of this posterior dissection between the prostate and rectum through this approach, and decided I would complete it anteriorly. This completed the posterior dissection. I then incised the anterior peritoneum, lateral to the obliterated umbilical ligaments, high along the anterior abdominal wall, and carried this incision through the anterior peritoneum using electrocautery back towards the vas deferens bilaterally. A gentle spreading motion was used to develop the lateral pelvic spaces. The obliterated umbilical ligaments were then ligated high along the anterior abdominal wall with bipolar cautery and divided with scissors. A transverse incision between the ligated ligaments was then made with scissors in order to allow for entrance into the retropubic space of Retzius. I then effectively "dropped" the bladder by continuing this dissection in a cephalad fashion until the underlying bladder and prostate could be visualized. The endopelvic fascia was identified and dissected free lateral to the prostate on each side. An incision was made through the lateral endopelvic fascia at the level of the mid prostate on each side with bipolar scissors, and this incision was carried through the lateral endopelvic fascia from the base of the prostate to the apex using scissors and then gentle spreading motion to dissect the levator ani muscles off the lateral aspect of the prostate bilaterally. The dorsal vein complex was then carefully isolated with scissors dissection. The puboprostatic ligaments were identified bilaterally and transected with scissors sharply. Two separate 0 Vicryl sutures were then used to ligate the dorsal vein complex while staying above the urethra and distal to the prostatic apex using a slip-knot technique. I then turned my attention to performing the bladder neck dissection. The bladder neck and its margin with the prostate were then identified. Monopolar scissors dissection was used to perform this dissection through the anterior aspect of the bladder until I was able to identify the urethra in the midline. A bladder neck sparing dissection was performed as much as possible. After incising the anterior aspect of the bladder neck, the Fried catheter was then pulled up anteriorly using a Prograsp, and the back wall of the urethra was then transected. I continued my dissection posteriorly until the previously dissected seminal vesicles and vas deferens were identified near the midline. These structures were pulled up anteriorly. I then continued my dissection of the base of the prostate from the posterior bladder using sharp bipolar scissors dissection. On the patient's right side, taking into consideration the preoperatively detected cancer volume and location, I performed a wide dissection on the right side between the base of the prostate and the posterior bladder as much as possible in order to obtain a negative margin on this side. On the left side, I did perform a modified nerve-sparing dissection of the fascia overlying the prostate with cold scissors dissection. This was started at the level of the mid gland of the prostate and extended both in a cephalad and caudal fashions along the length of the prostate. The prostatic pedicles were then identified bilaterally and ligated with a series of Weck clips and divided with scissors. I then continued the posterior dissection until the rectum was identified, and I was able to carefully and bluntly dissect the rectum off the prostate with gentle spreading technique until I reached the prostatic apex. The lateral pelvic attachments were then ligated widely on the right side, again taking into consideration the extent of the cancer on the right side, and this was this dissection was performed from the base of the prostate and extending to the apex. An identical dissection was performed on the left side. It should be mentioned that there was no obvious extraprostatic extension of any type of cancerous process appreciated during the course of the operation. I then turned my attention to performing the apical dissection. The dorsal vein complex was ligated with bipolar cautery between the previously placed Vicryl sutures and the apex of the prostate. I continued my dissection apically until the urethra was identified. I spared as much of the urethral length as possible while taking care not to compromise the surgical margin at this location. The urethra was then carefully transected, as was the underlying rectourethralis muscle, followed by any remaining Denonvilliers attachments to the prostate. The prostate was then completely free at this point and placed in the upper abdomen to be later retrieved in a specimen bag. The pelvis was carefully inspected. There was no significant bleeding appreciated. The rectum was noted to be grossly intact. The posterior plate was then reconstructed using a running 3-0 Vicryl V-Loc suture by reapproximating the rectourethralis muscle at the level of the urethral stump to the posterior vesicovisceral fascia at the level of the bladder neck. Care was taken not to incorporate the rectum with this reapproximation of the posterior plate. The urethrovesical anastomosis was then performed with a running double-armed 3-0 Monocryl suture. This was done in a [id number] approximating fashion. Once the anastomosis was completed , a new 18-Lao Fried catheter was placed in the bladder, and 20 cc of sterile water was placed in the balloon. The catheter irrigated manually and there was no significant extravasation appreciated from the urethrovesical anastomosis. I then turned my attention to performing bilateral pelvic lymphadenectomy, starting on the right side. I used the following limits of dissection in performing the lymphadenectomy: The external iliac vein laterally, the lateral bladder wall medially, the obturator nerve posteriorly, the external iliac vein anteriorly, Coopers ligament caudally, and the bifurcation of the iliac vein cranially. The lymph node packet on each side was carefully dissected from the surrounding tissue using a series of Hem-o-oliver clips and judicious use of bipolar cautery. There was no obviously positive lymph nodes identified bilaterally. At the conclusion of the lymphadenectomy on both sides, the obturator nerve and iliac vessels were intact and there was no active bleeding appreciated. Each of these lymph node packages were retrieved from the abdomen separately in a specimen bag and sent to Pathology for permanent histologic examination. The intra-abdominal pressure was then temporarily decreased to 5 mmHg, and no active bleeding was appreciated at any of the operative sites. Nonetheless, for additional hemostatic reassurance at the site of lymphadenectomy bilaterally, a total of 6 cc of Evicel was placed, divided between each side where the lymphadenectomy was performed. A 10 flat Christiano- Mcclain drain was then placed in the pelvis and brought out through the left lateral 8 mm robotic port site. It was ultimately secured to the skin with a 2- 0 silk suture and connected to bulb suction. The prostate was then collected in a specimen bag. This completed the robotic portion of the procedure. I returned to the patient's bedside. The anterior rectus fascia at the location of the 12 mm legal administrative assistant port site was reapproximated with an 0 Vicryl suture and a fascial closure device. The supraumbilical incision was extended slightly in order to allow for delivery of the specimen within the bag. The anterior rectus fascia at this location was reapproximated with running 0 Vicryl suture, followed by reapproximating the skin edges with a running 4-0 Monocryl suture. All the skin edges at each port site were then reapproximated in an identical fashion with Monocryl suture. The wounds were then dressed with Dermabond. The Christiano-Mcclain drain site was dressed with a Biopatch, followed by Tegaderm. This completed my portion of the operative procedure. Anesthesia then performed a tap block. The patient was then extubated, transferred to his bed, then taken to the recovery room. He tolerated the procedure well overall. COMPLICATIONS: None. DISPOSITION: He was transferred to the recovery room in stable condition and will be admitted for postoperative care. /[id number]/MODL MTDD
== END 2018-12-14 18:20 | disposition home or self-care (01) | DRG 708 ==
LOC: F3E 09:54 → F1N 10:32
PROVIDERS: ADMIT Specialist; ATTEND Specialist
PROC: 8E0W4CZ Robotic Assisted Procedure of Trunk Region, Percutaneous Endoscopic Approach (ICD-10-PCS; principal; 2018-12-13 12:00)
PROC: 0VT04ZZ Resection of Prostate, Percutaneous Endoscopic Approach (ICD-10-PCS; principal; 2018-12-13 12:00)
PROC: 0VT34ZZ Resection of Bilateral Seminal Vesicles, Percutaneous Endoscopic Approach (ICD-10-PCS; principal; 2018-12-13 12:00)
PROC: 0VBQ4ZZ Excision of Bilateral Vas Deferens, Percutaneous Endoscopic Approach (ICD-10-PCS; principal; 2018-12-13 12:00)
PROC: 07TC4ZZ Resection of Pelvis Lymphatic, Percutaneous Endoscopic Approach (ICD-10-PCS; principal; 2018-12-13 12:00)
DX: C61 Malignant neoplasm of prostate (principal); N40.1 Benign prostatic hyperplasia with lower urinary tract symptoms; R33.9 Retention of urine, unspecified; R39.198 Other difficulties with micturition; N39.43 Post-void dribbling; R35.1 Nocturia; I10 Essential (primary) hypertension; G47.33 Obstructive sleep apnea (adult) (pediatric); F31.9 Bipolar disorder, unspecified; G25.0 Essential tremor; Z80.42 Family history of malignant neoplasm of prostate
CPT/HCPCS: J0694; J1100; J1170; J1885; J2001; J2250; J2370; J2405; J2704; J2710; J3010